=== PATIENT | male | born 1930 | race Hispanic/Latino ===

== ENCOUNTER 2017-02-11 08:29 | Day surgery (SDC) | payer MEDICARE ==
[2017-02-08 12:32] VITALS: BMI 20.7
[2017-02-11 09:40] LABS: BASO # 0.01 K/mm3 (0.0-2.0); BASO % 0.2 % (0.0-3.0); EOS # 0.1 (0.0-0.7); EOS % 1.2 % (1.5-5.0); GRAN # 3.1 (1.4-6.5); GRAN % 71.6 % (50.0-68.0); HEMATOCRIT 44.4 % (42.0-52.0); LYMPH # 0.9 (1.2-3.4); MEAN CELL VOLUME 92.7 fl (80.0-105.0); MEAN CORPUSCULAR HEMOGLOBIN 32.2 pg (25.0-35.0); MEAN CORPUSCULAR HGB CONC 34.7 g/dl (31.0-37.0); MONO # 0.3 (0.1-0.6); RED CELL DISTRIBUTION WIDTH 13.8 % (11.5-14.5); WHITE BLOOD COUNT 4.3 10^3/ul (4.5-11.0)
[2017-02-11 09:47] LABS: BLOOD UREA NITROGEN 14 mg/dL (7-21); CALCIUM 9.8 mg/dL (8.4-10.5); CARBON DIOXIDE 31 mmol/L (21-33); CHLORIDE 99 mmol/L (98-107); CHOLESTEROL 134 mg/dL (130-200); GFR AFRICAN-AMERICAN > 60; GLUCOSE,RANDOM 166 mg/dL (70-110); POTASSIUM 4.3 mmol/L (3.6-5.0); SODIUM 140 mmol/L (132-148)
[2017-02-11 09:51] LABS: INR 1.01 (0.93-1.08); PARTIAL THROMBOPLASTIN TIME 28.7 Seconds (23.7-30.8)
[2017-02-11] MEDS ORDERED: Midazolam 2 MG/2 ML VIAL ONE ×2 (11:38→12:28)
[2017-02-11] MEDS ORDERED: Iodixanol 320 MG/ML 200 ML BOTTLE IV ONE (12:28)
[2017-02-11] MEDS ORDERED: Sodium Chloride 0.9% 1,000 ML IV SCH (12:45)
--- NOTE | 2017-02-11 14:12 | CARDCATH ---
PROCEDURE DATE: 02/11/2017 HISTORY The patient is a 86-year-old male, who presents with progressive exertional shortness of breath and angina including episodes of angina at rest. PAST MEDICAL HISTORY Includes diabetes mellitus, hypertension, and hypercholesterolemia. PAST SURGICAL HISTORY He is status post PTCA and stent for an anterior wall VT years ago. Because of this, cardiac catheterization was recommended. PROCEDURE Left heart catheterization and coronary arteriography, left ventriculogram followed by PTCA and stent of two lesions in the LAD. The right femoral artery was cannulated with a 6-Vietnamese sheath. There were no complications. The findings on catheterization revealed a left ventricle that contracted normally. Estimated ejection fraction of 60%. His coronary anatomy revealed a right dominant circulation. The RCA revealed diffuse atherosclerosis without critical lesions. The left main artery was unremarkable. The circumflex artery and obtuse marginal branches revealed diffuse intimal irregularities without critical lesions. The LAD was diffusely diseased and revealed multiple patent stents. In the distal portion of the LAD, there were two lesions including a 70% stenoses of approximately 8 mm in length. In the ostium of the LAD, there was an eccentric 70% lesion seen only in the JEFFERSON projection. The patient was started on intravenous Angiomax. On the fluoroscopic guide, the guiding catheter was placed in the ostium of the left main artery. An 0.014 ATW wire was put in the LAD passed a multiple critical lesions. A 2.0 balloon was utilized to predilate the lesion both in the distal portion as well as in the ostium of the LAD. A 2.5 x 8 mm drug-eluting stent was placed and deployed in the distal lesion. A 3.0 x 9 mm drug-eluting stent was placed and deployed in the ostium of the LAD. Repeat coronary artery revealed an excellent result with no residual stenosis and JHOAN III flow. Angio-Seal was used to close the femoral artery site. The patient tolerated the procedure well. In summary, the procedure was successful PTCA and stent of two lesions in the LAD with drug-eluting stents. The ostium of the LAD as well as the distal portion of the LAD was stented. Cardiac catheterization reveals normal LV function. Multiple patent stents were noted in the LAD. Given these findings, the patient's treatment will be continued aspirin indefinitely, Plavix for at least 1 year and an aggressive cardiac risk reduction program. Tc Núñez MD [facility] # [id number]
--- NOTE | 2017-02-11 17:56 | CP.PCM.HP ---
History of Present Illness - History of Present Illness History of Present Illness: HPI: Patient is a 86 year old with past medical history of Diabetes Mellitus Type 2 ( 15 years), Hypothyroidism, s/p Anterior TN with stent placement [place] [facility] [place]. Patient states that he was having dyspnea on exertion and rest. Patient underwent cardiac catherization with 2 stents this morning with Dr Núñez. Tolerated procedure well. Denies headaches, dizziness , cp, palpitations, sob, abdominal pain, numbness/tingling, urinary symptoms, changes in bowel habits. PMD: Dr Sheppard Allergies: NKDA Medications: Synthroid, Januvia, Glimeperide, ASA, Vytorin Medical Hx: DM Type 2, Hypothyroid, Hypercholesterolemia, Hx of TN s/p 4 stents Surgical Hx: R inguinal hernia repair Social Hx: Former smoker, quit 30 years ago, smoked approx 1 pack per week; denies alcohol and drug use Family Hx: Father - DM, heart disease; Mother - healthy Present on Admission - Present on Admission Any Indicators Present on Admission: No Review of Systems - Review of Systems All systems: reviewed and no additional remarkable complaints except - Constitutional Constitutional: absent: Chills, Fever - EENT Eyes: absent: Blurred Vision, Change in Vision Ears: absent: Dizziness - Cardiovascular Cardiovascular: absent: Chest Pain, Dyspnea, Edema, Lightheadedness, Palpitations, Syncope - Respiratory Respiratory: absent: Cough, Dyspnea, Wheezing - Gastrointestinal Gastrointestinal: absent: Abdominal Pain, Constipation, Diarrhea, Nausea, Vomiting - Genitourinary Genitourinary: absent: Difficulty Urinating, Dysuria - Neurological Neurological: absent: Confusion, Dizziness, Numbness, Headaches, Tingling, Weakness Past Patient History - Past Social History Smoking Status: Former Smoker - CARDIAC Hx Pacemaker: No - PULMONARY Hx Respiratory Disorders: No - NEUROLOGICAL Hx Paralysis: No - HEENT Hx HEENT Problems: No - RENAL Hx Chronic Kidney Disease: No - ENDOCRINE/METABOLIC Hx Endocrine Disorders: Yes Hx Diabetes Mellitus Type 2: Yes Hx Hypothyroidism: Yes - HEMATOLOGICAL/ONCOLOGICAL Hx Blood Transfusions: No Hx Blood Transfusion Reaction: No - INTEGUMENTARY Hx Dermatological Problems: No - MUSCULOSKELETAL/RHEUMATOLOGICAL Hx Musculoskeletal Disorders: Yes - GASTROINTESTINAL Hx Gastrointestinal Disorders: No - GENITOURINARY/GYNECOLOGICAL Hx Prostate Problems: Yes (BPH) - PSYCHIATRIC Hx Emotional Abuse: No Hx Physical Abuse: No Hx Substance Use: No - SURGICAL HISTORY Hx Surgeries: Yes - ANESTHESIA Hx Anesthesia Reactions: No Hx Malignant Hyperthermia: No Meds Allergies/Adverse Reactions: Allergies Allergy/AdvReac Type Severity Reaction Status Date / Time No Known Allergies Allergy Verified 09/15/15 14:05 Physical Exam - Constitutional Appears: Well, No Acute Distress - Head Exam Head Exam: ATRAUMATIC, NORMAL INSPECTION - Eye Exam Eye Exam: EOMI, Normal appearance Pupil Exam: NORMAL ACCOMODATION - ENT Exam ENT Exam: Mucous Membranes Moist - Neck Exam Neck exam: Positive for: Full Rom - Respiratory Exam Respiratory Exam: Clear to Auscultation Bilateral, NORMAL BREATHING PATTERN. absent: Rales, Rhonchi, Wheezes - Cardiovascular Exam Cardiovascular Exam: REGULAR RHYTHM, +S1, +S2 - GI/Abdominal Exam GI & Abdominal Exam: Normal Bowel Sounds, Soft. absent: Firm, Guarding, Rebound , Rigid, Tenderness - Extremities Exam Extremities exam: Positive for: normal inspection, pedal pulses present. Negative for: calf tenderness Additional comments: R groin dressing c/d/i, no evidence of hematoma visualized - Back Exam Back exam: NORMAL INSPECTION - Neurological Exam Neurological exam: Alert, Oriented x3 - Psychiatric Exam Psychiatric exam: Normal Affect, Normal Mood - Skin Skin Exam: Normal Color, Warm Results - Vital Signs Recent Vital Signs: Last Vital Signs Temp 97.2 F L 02/11/17 17:43 Pulse 68 02/11/17 17:43 Resp 18 02/11/17 17:43 BP 135/83 02/11/17 17:43 Pulse Ox 98 02/11/17 09:25 - Labs Result Diagrams: 02/11/17 09:00 02/11/17 09:00 Labs: Laboratory Results - last 24 hr 02/11/17 02/11/17 02/11/17 09:00 09:00 09:00 WBC 4.3 L D RBC 4.79 Hgb 15.4 Hct 44.4 MCV 92.7 MCH 32.2 MCHC 34.7 RDW 13.8 Plt Count 135 MPV 11.0 Gran % 71.6 H Lymph % (Auto) 21.0 L [place] % (Auto) 6.0 Eos % (Auto) 1.2 L Baso % (Auto) 0.2 Gran # 3.10 Lymph # 0.9 L [place] # 0.3 Eos # 0.1 Baso # 0.01 PT 10.9 INR 1.01 APTT 28.7 Sodium 140 Potassium 4.3 Chloride 99 Carbon Dioxide 31 Anion Gap 14 BUN 14 Creatinine 1.2 Est GFR ( Amer) > 60 Est GFR (Non-Af Amer) 58 POC Glucose (mg/dL) Random Glucose 166 H Calcium 9.8 Triglycerides 111 Cholesterol 134 LDL Cholesterol Direct 66 HDL Cholesterol 48 Blood Type Blood Type Confirm Antibody Screen BBK History Checked 02/11/17 02/11/17 02/11/17 09:00 10:28 16:06 WBC RBC Hgb Hct MCV MCH MCHC RDW Plt Count MPV Gran % Lymph % (Auto) [place] % (Auto) Eos % (Auto) Baso % (Auto) Gran # Lymph # [place] # Eos # Baso # PT INR APTT Sodium Potassium Chloride Carbon Dioxide Anion Gap BUN Creatinine Est GFR ( Amer) Est GFR (Non-Af Amer) POC Glucose (mg/dL) 154 H Random Glucose Calcium Triglycerides Cholesterol LDL Cholesterol Direct HDL Cholesterol Blood Type A POSITIVE Blood Type Confirm A POSITIVE Antibody Screen Negative BBK History Checked No verified bt Assessment & Plan - Assessment and Plan (Free Text) Assessment: 86 year old male with past medical hx of hypothyroidism, diabetes, acute TN s/p stent placement in 2008 presented with dyspnea on exertion and at rest, s/p cardiac catherization with 2 stents. Plan: 1. S/P Cardiac Catherization; Hx of CAD with multiple stents placed -Stable, afebrile -F/U am labs -Diet: Carb consistent -Continue ASA, Plavix (will need to be on plavix for 1 year) -Will start Ezetimibe 10mg and Atorvastatin 40mg -Continue Metoprolol 25mg BID -Continue distal pulse checks -Monitor groin access site for bleeding/hematoma -Cardiology on consult, f/u recommendations 2. Hx of Hypothyroidism -Continue synthroid 100mcg daily 3. Hx of Diabetes Mellitus -Continue Glimeperide and Januvia -Accuchecks [facility]
[2017-02-12 05:09] VITALS: TEMP 97.9; O2SAT 98
[2017-02-12] MEDS ORDERED: Levothyroxine 100 MCG TAB PO SCH (06:00)
[2017-02-12 06:23] LABS: BASO # 0.01 K/mm3 (0.0-2.0); BASO % 0.2 % (0.0-3.0); EOS # 0.1 (0.0-0.7); EOS % 1.4 % (1.5-5.0); GRAN # 3.82 (1.4-6.5); GRAN % 76.6 % (50.0-68.0); HEMATOCRIT 43.1 % (42.0-52.0); LYMPH # 0.8 (1.2-3.4); LYMPH % 15.2 % (22.0-35.0); MEAN CELL VOLUME 91.9 fl (80.0-105.0); MEAN CORPUSCULAR HGB CONC 34.8 g/dl (31.0-37.0); MEAN PLATELET VOLUME 10.8 fl (7.0-11.0); MONO # 0.3 (0.1-0.6); MONO % 6.6 % (1.0-6.0); RED CELL DISTRIBUTION WIDTH 13.8 % (11.5-14.5)
[2017-02-12 07:33] LABS: BLOOD UREA NITROGEN 12 mg/dL (7-21); CALCIUM 9.6 mg/dL (8.4-10.5); CARBON DIOXIDE 30 mmol/L (21-33); CHLORIDE 103 mmol/L (98-107); GFR AFRICAN-AMERICAN > 60; GLUCOSE,RANDOM 122 mg/dL (70-110); POTASSIUM 4.5 mmol/L (3.6-5.0); SODIUM 141 mmol/L (132-148)
--- NOTE | 2017-02-12 09:44 | CARD ---
APPROVED REPORT EKG Measurement Heart [id number] <Conclusion> Normal sinus rhythm Normal ECG
--- NOTE | 2017-02-12 09:44 | CARD ---
APPROVED REPORT EKG Measurement Heart [id number] [id number] <Conclusion> Normal sinus rhythm Normal ECG
[2017-02-12 12:02] VITALS: BP 123/73; PULSE 57; RESP 18
--- NOTE | 2017-02-12 16:27 | PN ---
DATE: 02/12/2017 SUBJECTIVE: The patient is asymptomatic. PHYSICAL EXAMINATION: VITAL SIGNS: Blood pressure is 123/73 and heart rate in the 50s. NECK: Negative JVD. LUNGS: Without rales. HEART: Reveals S1 and S2. EXTREMITIES: Without edema. LABORATORY DATA: Glucose is 122. The hemoglobin is 15. IMPRESSION 1. Stable post percutaneous transluminal coronary angioplasty and stent of an left anterior descending artery. 2. Diabetes mellitus. 3. Hypercholesterolemia. 4. Hypertension. PLAN: Given these findings, the patient is doing well from a cardiac perspective. The patient can be discharged today. The patient should continue on aspirin indefinitely and Plavix for at least 1 year and undergo a strict cardiac risk reduction program. Tc Núñez MD
--- NOTE | 2017-02-13 12:07 | CP.PCM.DIS ---
Provider - Provider Attending physician: Tc Núñez MD Primary care physician: Ok Sheppard MD Time Spent in preparation of Discharge (in minutes): 60 Hospital Course - Lab Results Lab Results: Most Recent Lab Values WBC 5.0 10^3/ul (4.5-11.0) 02/12/17 06:00 RBC 4.69 10^6/uL (3.5-6.1) 02/12/17 06:00 Hgb 15.0 g/dL (14.0-18.0) 02/12/17 06:00 Hct 43.1 % (42.0-52.0) 02/12/17 06:00 MCV 91.9 fl (80.0-105.0) 02/12/17 06:00 MCH 32.0 pg (25.0-35.0) 02/12/17 06:00 MCHC 34.8 g/dl (31.0-37.0) 02/12/17 06:00 RDW 13.8 % (11.5-14.5) 02/12/17 06:00 Plt Count 127 10^3/uL (120.0-450.0) 02/12/17 06:00 MPV 10.8 fl (7.0-11.0) 02/12/17 06:00 Gran % 76.6 % (50.0-68.0) H 02/12/17 06:00 Lymph % (Auto) 15.2 % (22.0-35.0) L 02/12/17 06:00 [place] % (Auto) 6.6 % (1.0-6.0) H 02/12/17 06:00 Eos % (Auto) 1.4 % (1.5-5.0) L 02/12/17 06:00 Baso % (Auto) 0.2 % (0.0-3.0) 02/12/17 06:00 Gran # 3.82 (1.4-6.5) 02/12/17 06:00 Lymph # 0.8 (1.2-3.4) L 02/12/17 06:00 [place] # 0.3 (0.1-0.6) 02/12/17 06:00 Eos # 0.1 (0.0-0.7) 02/12/17 06:00 Baso # 0.01 K/mm3 (0.0-2.0) 02/12/17 06:00 PT 10.9 Seconds (9.9-11.8) 02/11/17 09:00 INR 1.01 (0.93-1.08) 02/11/17 09:00 APTT 28.7 Seconds (23.7-30.8) 02/11/17 09:00 Sodium 141 mmol/L (132-148) 02/12/17 06:00 Potassium 4.5 mmol/L (3.6-5.0) 02/12/17 06:00 Chloride 103 mmol/L (98-107) 02/12/17 06:00 Carbon Dioxide 30 mmol/L (21-33) 02/12/17 06:00 Anion Gap 13 (10-20) 02/12/17 06:00 BUN 12 mg/dL (7-21) 02/12/17 06:00 Creatinine 1.1 mg/dL (0.5-1.4) 02/12/17 06:00 Est GFR ( Amer) > 60 02/12/17 06:00 Est GFR (Non-Af Amer) > 60 02/12/17 06:00 POC Glucose (mg/dL) 124 mg/dL (65-110) H 02/12/17 07:22 Random Glucose 122 mg/dL (70-110) H 02/12/17 06:00 Calcium 9.6 mg/dL (8.4-10.5) 02/12/17 06:00 Triglycerides 111 mg/dL (35-160) 02/11/17 09:00 Cholesterol 134 mg/dL (130-200) 02/11/17 09:00 LDL Cholesterol Direct 66 mg/dL (0-129) 02/11/17 09:00 HDL Cholesterol 48 mg/dL (29-60) 02/11/17 09:00 Blood Type A POSITIVE 02/11/17 09:00 Blood Type Confirm A POSITIVE 02/11/17: Antibody Screen Negative 02/11/17 09:00 BBK History Checked No verified bt 02/11/17 09:00 - Hospital Course Hospital Course: Patient is a 86 year old with past medical history of Diabetes Mellitus Type 2 ( 15 years), Hypothyroidism, s/p Anterior CT with stent placement [place] [facility] [place] cardiac cathe[place]. Patient underwent cardiac catherization with 2 stents in the LAD with Dr Núñez. Tolerated procedure well. Denied headaches, dizziness, cp, palpitations, sob, abdominal pain, numbness/tingling, urinary symptoms, changes in bowel habits. He was monitored overnight. He was cleared to be discharged by Dr. Núñez and told to refrain from strenuous activity and to follow s/p cardiac catherization and s/p PTCA discharge instructions which include plaxvix. He was also told if If bleeding occurs from right groin, apply pressure and go to the nearest emergency room. If chest pain occurs, go to the nearest emergency room. Patient was told to follow up with Dr. Sheppard next week and follow up with Dr. Núñez within 3-4 weeks. The patient was also notified that the Cardiac rehabilitation center will call with regards to participating in the cardiac rehab program. Patient instructed to follow a Heart healthy, low cholesterol and diabetic exchange diet. Patient stated, as of this writing, that wishes to refuse the flu and the pneumococcal vaccines. PAtient understand the discharge plan and will follow instructions. Discharge Exam - Head Exam Head Exam: ATRAUMATIC, NORMAL INSPECTION Discharge Plan - Follow Up Plan Condition: GOOD Disposition: HOME/ ROUTINE Instructions: Clopidogrel (By mouth), Coronary Artery Disease (GEN), Heart Healthy Diet (GEN), Cholesterol and Your Health (GEN), Meal Planning with Diabetes Exchanges (GEN), Cardiac Rehabilitation (GEN), Coronary Intravascular Stent Placement (GEN) Additional Instructions: Discharge instructions: Please refrain from strenuous activity; follow s/p cardiac catherization and s/p PTCA discharge instructions. If bleeding occurs from right groin, apply pressure and go to the nearest emergency room. If chest pain occurs, go to the nearest emergency room. Follow up with Dr. Sheppard next week; follow up with Dr. Núñez within 3-4 weeks. Cardiac rehabilitation center will call you today or tomorrow with regards to participating in the cardiac rehab program. Diet: Heart healthy, low cholesterol and diabetic exchange diet Patient states, as of this writing, that wishes to refuse the flu and the pneumococcal vaccines. Referrals: Ok Sheppard MD [Primary Care Provider] -
== END 2017-02-12 14:17 | disposition home or self-care (01) ==
LOC: CATH 08:29 → 2RSO 12:43 → CATH 02-12 14:17
PROVIDERS: ATTEND Internal Medicine Cardiovascular Disease
DX: I25.118 Atherosclerotic heart disease of native coronary artery with other forms of angina pectoris (principal); I25.2 Old myocardial infarction; E11.9 Type 2 diabetes mellitus without complications; I10 Essential (primary) hypertension; E78.00 Pure hypercholesterolemia, unspecified; E03.9 Hypothyroidism, unspecified; Z95.5 Presence of coronary angioplasty implant and graft; Z87.891 Personal history of nicotine dependence
CPT/HCPCS: 36415 ×2; 80048 ×2; 80061; 82948 ×2; 85025 ×2; 85610; 85730; 86850; 86900; 93005; 93458; 99152; 99153; C1725; C1769 ×2; C1874 ×2; C1887; C2629; C9600; J0583; J2250; J3010; J7040 ×2

== ENCOUNTER 2017-02-19 11:02 | Emergency (ER) | payer MEDICARE ==
[2017-02-19 11:26] VITALS: RESP 18; TEMP 98.2
--- NOTE | 2017-02-19 11:55 | ED PDOC ---
Arrival/HPI - General Chief Complaint: Shortness Of Breath Time Seen by Provider: 02/19/17 11:25 Historian: Patient - History of Present Illness Narrative History of Present Illness (Text): 11:51 An 86 year old male, whose past medical history includes cardiac stent (02/11/17 ) and diabetes, presents to the emergency department complaining of shortness of breath and midsternal chest pressure for the past 8 days. Patient reports constant pressure developed after stent procedure. Patient reports no relieving or exacerbating factors. Notes he has taken Aspirin and Plavix today. Reports similar symptoms in the past. Denies any history of blood clots. Denies any cough, fever, abdominal pain or any other complaints at this time. PMD: Dr. Sheppard Cardiology: Dr. Núñez Time/Duration: > week Symptom Onset: Sudden Symptom Course: Unchanged Activities at Onset: Rest Context: Home Past Medical History - Provider Review Nursing Documentation Reviewed: Yes - Endocrine/Metabolic Hx Diabetes Mellitus Type 2: Yes - Psychiatric Hx Substance Use: No - Surgical History Hx Cardiac Catheterization: Yes (x6) Family/Social History - Physician Review Nursing Documentation Reviewed: Yes Family/Social History: Other (non contributory) Smoking Status: Never Smoked Hx Alcohol Use: No Hx Substance Use: No Allergies/Home Meds Allergies/Adverse Reactions: Allergies No Known Allergies Allergy (Unverified 02/19/17 11:09) Home Medications: Home Meds Medication Instructions Recorded Confirmed Aspirin [Adult Low Dose Aspirin EC] 81 mg PO DAILY 08/25/15 02/12/17 Ezetimibe/Simvastatin [Vytorin 1 tab PO DAILY 08/25/15 02/12/17 10-40 mg Tablet] Glimepiride [amaRYL] 2 mg PO DAILY 08/25/15 02/12/17 Levothyroxine [Synthroid] 100 mcg PO DAILY 08/25/15 02/12/17 SITagliptin [Januvia] 100 mg PO DAILY 08/25/15 02/12/17 Ergocalciferol (Vitamin D2) 2,000 iu PO DAILY 02/08/17 02/11/17 [Vitamin D2] Clopidogrel [Plavix] 75 mg PO DAILY 02/12/17 02/12/17 Aspirin [Aspirin Chewable] 81 mg PO BID 02/19/17 02/19/17 Clopidogrel [Plavix] 75 mg PO DAILY 02/19/17 02/19/17 Ezetimibe/Simvastatin [Vytorin 1 tab PO DAILY 02/19/17 02/19/17 10-10 mg Tablet] Glimepiride [amaRYL] 2 mg PO DAILY 02/19/17 02/19/17 Levothyroxine [Synthroid] 100 mcg PO DAILY 02/19/17 02/19/17 SITagliptin [Januvia] 50 mg PO DAILY 02/19/17 02/19/17 Review of Systems - Physician Review All systems were reviewed & negative as marked: Yes - Review of Systems Constitutional: absent: Fevers Respiratory: SOB. absent: Cough Cardiovascular: Other (chest pressure) Gastrointestinal: absent: Abdominal Pain Physical Exam Vital Signs Reviewed: Yes Vital Signs Temp Pulse Resp BP Pulse Ox 02/19/17 13:30 67 18 142/60 96 02/19/17 11:51 18 02/19/17 11:25 98.2 F 75 18 132/71 98 Appearance: Positive for: Well-Appearing, Non-Toxic, Comfortable Pain Distress: None Mental Status: Positive for: Alert and Oriented X 3 - Systems Exam Head: Present: Atraumatic, Normocephalic Pupils: Present: PERRL Extroacular Muscles: Present: EOMI Conjunctiva: Present: Normal Mouth: Present: Moist Mucous Membranes Neck: Present: Normal Range of Motion Respiratory/Chest: Present: Clear to Auscultation, Good Air Exchange. No: Respiratory Distress, Accessory Muscle Use Cardiovascular: Present: Regular Rate and Rhythm, Normal S1, S2. No: Murmurs Abdomen: Present: Normal Bowel Sounds. No: Tenderness, Distention, Peritoneal Signs Back: Present: Normal Inspection Upper Extremity: Present: Normal Inspection. No: Cyanosis, Edema Lower Extremity: Present: Normal Inspection. No: Edema Neurological: Present: GCS=15, CN II-XII Intact, Speech Normal Skin: Present: Warm, Dry, Normal Color. No: Rashes Psychiatric: Present: Alert, Oriented x 3, Normal Insight, Normal Concentration Medical Decision Making ED Course and Treatment: 02/19/17 11:49 EKG: Ordered, reviewed, and independently interpreted the EKG. Rate : 81 BPM Rhythm : NSR Interpretation : normal axis, normal intervals, no acute ischemia 02/19/17 12:33 chest xray Creator : Johanna Wilkes MD FINDINGS: LINES AND TUBES: None. LUNG AND PLEURA: The lungs are well inflated and clear. HEART AND MEDIASTINUM: The heart is not enlarged. Atherosclerotic aortic arch calcifications are present. The hilar and mediastinal contours are within normal limits. SKELETAL STRUCTURES: The bony structures are within normal limits for the patient's age. VISUALIZED UPPER ABDOMEN: Normal. IMPRESSION: No active pulmonary disease. 02/19/17 13:43 Discussed results with patient and recommended admission for observation, however patient does not wish to stay. I then recommended at least repeating troponin level for 3 hrs, which he also refused. Discussed risks and benefits, but patient was adamant that he wants to go home. Case discussed with Dr. Núñez, who will follow up with patient this week and will schedule outpatient stress test. - Lab Interpretations Lab Results: 02/19/17 11:54 02/19/17 11:54 Lab Results 02/19/17 11:54: Sodium 137, Potassium 4.5, Chloride 96, Carbon Dioxide 31, Anion Gap 15, BUN 13, Creatinine 1.0, Est GFR ( Amer) > 60, Est GFR (Non- Af Amer) > 60, Random Glucose 255 H, Calcium 9.8, Total Bilirubin 1.3, AST 28, ALT 36, Alkaline Phosphatase 35 L, Troponin I 0.04, Total Protein 6.8, Albumin 4.4, Globulin 2.4, Albumin/Globulin Ratio 1.9 H 02/19/17 11:54: D-Dimer, Quantitative 0.48 02/19/17 11:54: WBC 3.8 L D, RBC 4.41, Hgb 14.1, Hct 40.8 L, MCV 92.5, MCH 32.0 , MCHC 34.6, RDW 13.6, Plt Count 141, MPV 10.8, Gran % 67.4, Lymph % (Auto) 25.4 , [place] % (Auto) 5.6, Eos % (Auto) 1.3 L, Baso % (Auto) 0.3, Gran # 2.55, Lymph # 1.0 L, [place] # 0.2, Eos # 0.1, Baso # 0.01 I have reviewed the lab results: Yes - RAD Interpretation Radiology Orders: 02/19/17 11:35 CHEST TWO VIEWS (PA/LAT) [RAD] Stat - EKG Interpretation Interpreted by ED Physician: Yes Type: 12 lead EKG - Scribe Statement The provider has reviewed the documentation as recorded by the Stuartibalissa Duncan Provider Stuartibe Attestation: All medical record entries made by the Scribe were at my direction and personally dictated by me. I have reviewed the chart and agree that the record accurately reflects my personal performance of the history, physical exam, medical decision making, and the department course for this patient. I have also personally directed, reviewed, and agree with the discharge instructions and disposition. Disposition/Present on Arrival - Present on Arrival Any Indicators Present on Arrival: No History of DVT/PE: No History of Uncontrolled Diabetes: No Urinary Catheter: No History of Decub. Ulcer: No History Surgical Site Infection Following: None - Disposition Have Diagnosis and Disposition been Completed?: Yes Diagnosis: Chest pain Disposition: HOME/ ROUTINE Disposition Time: 13:43 Condition: STABLE Discharge Instructions (ExitCare): Chest Pain (ED) Additional Instructions: Please follow up with Dr Núñez tomorrow. Return to the ER for any worsening symptoms or for any other concerns. Referrals: Tc Núñez MD [Staff Provider] - Follow up with primary Forms: Kasumi-sou (Estonian)
[2017-02-19 12:05] LABS: BASO # 0.01 K/mm3 (0.0-2.0); BASO % 0.3 % (0.0-3.0); EOS # 0.1 (0.0-0.7); EOS % 1.3 % (1.5-5.0); GRAN # 2.55 (1.4-6.5); GRAN % 67.4 % (50.0-68.0); HEMATOCRIT 40.8 % (42.0-52.0); LYMPH % 25.4 % (22.0-35.0); MEAN CELL VOLUME 92.5 fl (80.0-105.0); MEAN CORPUSCULAR HGB CONC 34.6 g/dl (31.0-37.0); MEAN PLATELET VOLUME 10.8 fl (7.0-11.0); MONO # 0.2 (0.1-0.6); MONO % 5.6 % (1.0-6.0); RED CELL DISTRIBUTION WIDTH 13.6 % (11.5-14.5); WHITE BLOOD COUNT 3.8 10^3/ul (4.5-11.0)
--- NOTE | 2017-02-19 13:03 | RAD ---
HISTORY: COMPARISON: No prior. TECHNIQUE: Chest PA and lateral FINDINGS: LINES AND TUBES: None. LUNG AND PLEURA: The lungs are well inflated and clear. HEART AND MEDIASTINUM: The heart is not enlarged. Atherosclerotic aortic arch calcifications are present. The hilar and mediastinal contours are within normal limits. SKELETAL STRUCTURES: The bony structures are within normal limits for the patient's age. VISUALIZED UPPER ABDOMEN: Normal. OTHER FINDINGS: None. IMPRESSION: No active pulmonary disease.
[2017-02-19 13:08] LABS: ALB/GLOB RATIO 1.9 (1.1-1.8); ALKALINE PHOSPHATASE 35 U/L (38-126); ALT/SGPT 36 U/L (7-56); AST/SGOT 28 U/L (17-59); BILIRUBIN,TOTAL 1.3 mg/dL (0.2-1.3); BLOOD UREA NITROGEN 13 mg/dL (7-21); CALCIUM 9.8 mg/dL (8.4-10.5); CARBON DIOXIDE 31 mmol/L (21-33); CHLORIDE 96 mmol/L (95-110); GFR AFRICAN-AMERICAN > 60; GLUCOSE,RANDOM 255 mg/dL (70-110); POTASSIUM 4.5 mmol/L (3.6-5.0); SODIUM 137 mmol/L (132-148); TOTAL PROTEIN 6.8 g/dL (5.8-8.3)
[2017-02-19 13:20] LABS: TROPONIN I 0.04 ng/mL
[2017-02-19 13:32] VITALS: BP 142/60; PULSE 67; O2SAT 96
--- NOTE | 2017-02-20 11:38 | CARD ---
APPROVED REPORT EKG Measurement Heart [id number] WI [id number] <Conclusion> Sinus rhythm with occasional Abberrantly Conducted premature PAC.
== END 2017-02-19 14:01 | disposition home or self-care (01) ==
LOC: ED 11:02 → EDUNIT# 11:02 → ED 14:01
DX: R07.9 Chest pain, unspecified (principal); E11.9 Type 2 diabetes mellitus without complications; Z95.5 Presence of coronary angioplasty implant and graft